=== PATIENT | male | born 1955 | race Caucasian/White ===

== ENCOUNTER → 2020-09-15 | Outpatient (CLI) | payer MEDICARE | END | disposition home or self-care (01) | LOC: CFH 13:41 | PROVIDERS: ATTEND Internal Medicine | DX: N62 Hypertrophy of breast (principal); N63.25 Unspecified lump in the left breast, overlapping quadrants; Z80.3 Family history of malignant neoplasm of breast | CPT/HCPCS: 76642; 77062; 77066; G0279 ==